=== PATIENT | female | born 1980 | race Caucasian/White ===

== ENCOUNTER 2017-06-11 22:00 | Emergency (ER) | payer OTHER | END 2017-06-11 22:35 | disposition home or self-care (01) | LOC: D.ER 22:00 | DX: S02.5XXA Fracture of tooth (traumatic), initial encounter for closed fracture (principal); X58.XXXA Exposure to other specified factors, initial encounter; Y93.89 Activity, other specified; Y92.029 Unspecified place in mobile home as the place of occurrence of the external cause; K08.89 Other specified disorders of teeth and supporting structures ==

== ENCOUNTER 2017-06-24 21:14 | Emergency (ER) | payer OTHER | END 2017-06-24 21:45 | disposition home or self-care (01) | LOC: D.ER 21:14 | DX: S02.5XXA Fracture of tooth (traumatic), initial encounter for closed fracture (principal); X58.XXXA Exposure to other specified factors, initial encounter; Y93.89 Activity, other specified; Y92.89 Other specified places as the place of occurrence of the external cause; K08.9 Disorder of teeth and supporting structures, unspecified ==